=== PATIENT | male | born 1990 | race Caucasian/White ===

== ENCOUNTER 2020-05-09 10:24 | Emergency (ER) | payer OTHER, SELFPAY ==
[2020-05-09 10:43] VITALS: BP 146/84; PULSE 90; RESP 16; TEMP 36.1; O2SAT 97; BMI 32.5
--- NOTE | 2020-05-09 10:46 | PC.NURSE ---
usually wears corrective lenses. Not wearing them during testing.
--- NOTE | 2020-05-09 10:48 | PC.NURSE ---
[place] like a piece of metal got into right eye. Denies pain currently but redness noted to inside of right eye. Slightly blurry vision. Unaware of TDAP status.
--- NOTE | 2020-05-09 11:34 | ED_ITS ---
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 Said that he was wearing eye protection but that the area was windy and dust from the grinding was flying around? he thought he felt something go into his right eye and so he stopped working for about 10 minutes and to see if it would ?blinked out? and it did not so he then irrigated his eye with some eye wash but when he looked in mirror he saw that there appeared to be a small speck of dark material in his right eye and so he came to the emergency department for further ev aluation. He currently is having almost no pain and he did have some blurred vision on the right side earlier but he feels this has now resolved. He says that his eye feels irritated slightly when he blinks but is not bothering him too much at this point. He also reports he has a slight headache that is right- sided that began after he felt something went in his eye. This is a new job use only been out for about 1 week and he was told not to fill out L and I for his emergency department visit so he does not want to do this today. He denies vision changes, visual field loss, current eye pain, or any other symptoms. 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) Severity: mild Severity scale (1-10): 1 If Pain, Quality: other (Irritating) Associated symptoms: headache (Slight right-sided ) Treatments Prior to Arrival: irrigated eye Related Data Patient tetanus UTD: No (Patient is unsure of last tetanus) Previous Rx's Medication Instructions Recorded erythromycin 1 cm EYE-BOTH TID 5 Days #3.5 gram 05/09/20 Allergies Allergy/AdvReac Type Severity Reaction Status Date / Time No Known Drug Allergies Allergy Verified 05/09/20 10:46 Review of Systems <Elizabeth Wall PA-C - Last Filed: 05/09/20 16:06> Review of Systems Narrative: GENERAL: Denies chills, fatigue, malaise, fever, sweats. HEENT: Positive for bilateral eye discomfort and irritation on the right positive for eye pain and blurred vision on the right now resolved, Denies sinus pain, ear pain, sore throat, difficulty swallowing, dizziness. RESPIRATORY: Denies dyspnea, cough, wheezing, hemoptysis, sputum. CARDIOVASCULAR: Denies chest pain, palpitations, orthopnea, edema, GASTROINTESTINAL: Denies nausea, vomiting, abdominal pain, diarrhea, constipation, melena. : Denies dysuria, frequency, incontinence, hematuria, urinary retention. MUSCULOSKELETAL: denies weakness, joint pain, or bony pain SKIN: Denies rash, skin lesions, or other NEUROLOGIC: Denies weakness, positive for mild headache on the right headache, negative for numbness, change in speech, confusion, seizures, incoordination. PSYCHIATRIC: No concerning psychosocial issues. 12 point review of systems is negative except for those stated above Patient History <Elizabeth Wall PA-C - Last Filed: 05/09/20 16:06> Social History Smoking Status: Never smoker Smoking Status: Never smoker alcohol intake frequency: 0-2 drinks per day Substance Use Type: does not use Exam <Elizabeth Wall PA-C - Last Filed: 05/09/20 16:06> Narrative Exam Narrative: GENERAL: 29 year old patient appears stated age. Well-nourished, well-developed patient, in mild distress. HEAD: Atraumatic. Normocephalic. EYES: Pupils equal round and reactive. Extraocular motions intact. No scleral icterus. There is mild injection on the nasal side of the right eye just medial to the iris, there is a 0.03 mm speck of dark material the remains stationary with blinking at the 5 o'clock position, there is no injection or drainage. The globes appear to be intact, the sclera and cornea are without generalized erythema, injection, exudate or swelling bilaterally. ENT: Nose without bleeding, purulent drainage. Throat without erythema, tonsillar hypertrophy or exudate. Airway patent. NECK: Trachea midline. Non tender CARDIOVASCULAR: Regular rate and rhythm without murmurs, gallops, or rubs. RESPIRATORY: Clear to auscultation. Breath sounds equal bilaterally. No wheezes, rales, or rhonchi. EXTREMITIES: No edema or joint tenderness. BACK: Nontender without deformity or crepitance. No flank tenderness. NEURO: AOx3. Cranial nerves are intact. SKIN: No rash or erythema of visible areas Initial Vital Signs Initial Vital Signs: Vital Signs Temperature 97.0 F L 05/09/20 10:43 Pulse Rate 90 05/09/20 10:43 Respiratory Rate 16 05/09/20 10:43 Blood Pressure 146/84 H 05/09/20 10:43 Pulse Oximetry 97 05/09/20 10:43 <Aneta Andre DO - Last Filed: 05/11/20 07:37> Initial Vital Signs Initial Vital Signs: Vital Signs Temperature 97.0 F L 05/09/20 10:43 Pulse Rate 90 05/09/20 10:43 Respiratory Rate 16 05/09/20 10:43 Blood Pressure 146/84 H 05/09/20 10:43 Pulse Oximetry 97 05/09/20 10:43 EYE: EOMI, LIA, foreign body noted and in the sclera with naked eye. It was easily removed with a Q-tip. Procedures <KEYANNA Velez Last Filed: 05/09/20 16:06> Foreign Body EYE Time Out performed: Yes Location: eye (R) Topical anesthetic used: proparacaine Foreign body: metal Evidence of corneal penetration: No Technique: irrigation and cotton tip swab Procedure performed under: direct visualization with magnification Post-procedure medication: ophthalmic antibiotic Patient tolerated procedure: well Scores <KEYANNA Velez Last Filed: 05/09/20 16:06> GCS [place] coma scale eye opening: Spontaneous [place] coma scale verbal response: Orientated [place] coma scale motor response: Obey commands [place] coma scale total score: 15 Course <KEYANNA Velez Last Filed: 05/09/20 16:06> Orders Ordered: Discontinued Medications Diphtheria/Tetanus/Acell Pertussis (Adacel) 0.5 ml IM .ONCE ONE Stop: 05/09/20 12:37 Last Admin: 05/09/20 12:39 Dose: 0.5 ml Documented by: RANDI Fluorescein Sodium (Ful-Lisbet) 1 mg EYE-RIGHT NOW ONE Stop: 05/09/20 11:36 Last Admin: 05/09/20 12:40 Dose: 1 mg Documented by: RANDI Fluorescein Sodium (Ful-Lisbet) 1 mg EYE-LEFT NOW ONE Stop: 05/09/20 11:41 Last Admin: 05/09/20 12:15 Dose: 1 mg Documented by: RANDI Proparacaine HCl (Parcaine 0.5% Ophth Lisa) 2 drops EYE-RIGHT NOW ONE Stop: 05/09/20 11:36 Last Admin: 05/09/20 12:14 Dose: 2 drops Documented by: RANDI Proparacaine HCl (Parcaine 0.5% Ophth Lisa) 2 drops EYE-LEFT NOW ONE Stop: 05/09/20 11:41 Last Admin: 05/09/20 12:15 Dose: 2 drops Documented by: RANDI Tetanus/Diphtheria Toxoids (Td) 0.5 ml IM .ONCE ONE Stop: 05/09/20 11:36 Last Admin: 05/09/20 12:39 Dose: Not Given Documented by: RANDI Vital Signs Vital signs: Vital Signs - 8 hr 05/09/20 10:43 05/09/20 12:02 Temperature 97.0 F L Pulse Rate 90 74 Respiratory Rate 16 14 Blood Pressure 146/84 H Blood Pressure [Left Arm] 123/74 Pulse Oximetry 97 98 <Aneta Andre DO - Last Filed: 05/11/20 07:37> Orders Ordered: Discontinued Medications Diphtheria/Tetanus/Acell Pertussis (Adacel) 0.5 ml IM .ONCE ONE Stop: 05/09/20 12:37 Last Admin: 05/09/20 12:39 Dose: 0.5 ml Documented by: RANDI Fluorescein Sodium (Ful-Lisbet) 1 mg EYE-RIGHT NOW ONE Stop: 05/09/20 11:36 Last Admin: 05/09/20 12:40 Dose: 1 mg Documented by: RANDI Fluorescein Sodium (Ful-Lisbet) 1 mg EYE-LEFT NOW ONE Stop: 05/09/20 11:41 Last Admin: 05/09/20 12:15 Dose: 1 mg Documented by: RANDI Proparacaine HCl (Parcaine 0.5% Ophth Lisa) 2 drops EYE-RIGHT NOW ONE Stop: 05/09/20 11:36 Last Admin: 05/09/20 12:14 Dose: 2 drops Documented by: RANDI Proparacaine HCl (Parcaine 0.5% Ophth Lisa) 2 drops EYE-LEFT NOW ONE Stop: 05/09/20 11:41 Last Admin: 05/09/20 12:15 Dose: 2 drops Documented by: RANDI Tetanus/Diphtheria Toxoids (Td) 0.5 ml IM .ONCE ONE Stop: 05/09/20 11:36 Last Admin: 05/09/20 12:39 Dose: Not Given Documented by: RANDI Vital Signs Vital signs: Vital Signs - 8 hr 05/09/20 10:43 05/09/20 12:02 Temperature 97.0 F L Pulse Rate 90 74 Respiratory Rate 16 14 Blood Pressure 146/84 H Blood Pressure [Left Arm] 123/74 Pulse Oximetry 97 98 MDM - Eye Problem <Elizabeth Wall PA-C - Last Filed: 05/09/20 16:06> Differential Diagnosis Differential diagnosis: Likely corneal abrasion and other (Foreign body, eye trauma) Medical Records Attestation: I reviewed the patient's medical records. MDM Narrative Medical decision making narrative: This is a 29-year-old previously healthy gentleman who presents with right eye injury sustained at work today. Flex of dust and possibly maxwell metal flew into his eye while he was grinding metal when they were carried on the wind. He has no history of eye problems or eye surgery, does not wear contact lenses and at the time of exam in the emergency department had no active complaint of pain or visual changes. Eye exam was u nremarkable with the exception of the presence of 1 approximately 0.03 mm dark speck of material stationary and superficially lodged in the cornea of each of the patient's eyes. Proparacaine, Fluroscein exam. Saline washout and extensive flushing did not resolve the foreign body, ultimately removed with a sterile cotton tip swab without incident. Dr. Andre ED attending was involved in this patient's care and also examined the patient's eye. Discussed follow-up plan, antibiotic ointment for his eye, provided a prescription for this, provided emergency return precautions, all questions were answered. Discharge Plan Departure Patient Disposition: Home Clinical Impression: Acute foreign body of cornea Qualifiers: Encounter type: initial encounter Laterality: right Qualified Code(s): T15.01XA - Foreign body in cornea, right eye, initial encounter Right corneal abrasion Qualifiers: Encounter type: initial encounter Qualified Code(s): S05.01XA - Injury of conjunctiva and corneal abrasion without foreign body, right eye, initial encounter Discharge Date/Time: 05/09/20 13:19 Instructions: DI for Corneal Abrasion, DI for Eye Pain, DI for Corneal Foreign Body-Eye Activity Restrictions/Additional Instructions: Thank you for letting us be part of the care in the emergency department today. There is no evidence of an emergent or life threatening illness at this time, but follow up with your doctor in 1-2 days is recommended nonetheless to continue to rule out serious underlying causes of your symptoms. Please call the office for an appointment. Please return to the Emergency Department for any worsening or persistent symptoms. Please take medications as directed. The right eye which was causing pain for you did have a very small piece of what appears to be resting metal superficially imbedded in your cornea this was removed after extensive irrigation with a cotton tip swab successfully. It is i mportant to use the antibiotic ointment as prescribed to ensure that you do not developed an infection in your eye, I have provided a paper prescription as requested. I have also provided a work note for you so that you can be excused from work today and tomorrow if needed. Please be sure to wear good eye protection that includes side protection over her temples when you are doing anything such as grinding that might release test or particular matter into the air. I am filling out self-insured L and I forms today for you. You will also see a referral to [facility] resources; I realize you do not live in the [facility] area but if you need help establishing a primary care provider and do not have one you can get in touch with them. You have any worsening pain, increasing redness, swelling, irritation or vision changes or worsening headache please seek medical care immediately Prescriptions: New erythromycin 5 mg/gram (0.5 %) ointment 1 cm EYE-BOTH TID 5 Days Qty: 3.5 RF: 0 Referrals: [facility] [Outside] Stand Alone Forms: Work Release Note <Aneta Andre, DO - Last Filed: 05/11/20 07:37> Cosign ED Attending Werner Attestation: I was immediately available in the department for consultation. Documentation has been reviewed. I agree with assessment and plan.
[2020-05-09 12:02] VITALS: BP 123/74; PULSE 74; RESP 14; O2SAT 98
[2020-05-09] MEDS: PROPARACAINE 0.5% OPHTH SOL 2 DROPS EYE-RIGHT (12:14)
[2020-05-09] MEDS: PROPARACAINE 0.5% OPHTH SOL 2 DROPS EYE-LEFT (12:15)
[2020-05-09] MEDS: FLUORESCEIN 1 MG STRIP EYE-LEFT (12:15)
[2020-05-09] MEDS: TET,DIPH,PERTUSS(ACELL),VAC/PF 0.5 ML SYRINGE IM (12:39)
[2020-05-09] MEDS: FLUORESCEIN 1 MG STRIP EYE-RIGHT (12:40)
== END 2020-05-09 13:19 | disposition home or self-care (01) ==
PROVIDERS: Emergency Provider Student in an Organized Health Care Education/Training Program
DX: T15.01XA Foreign body in cornea, right eye, initial encounter (principal); S05.51XA Penetrating wound with foreign body of right eyeball, initial encounter; Y99.0 Civilian activity done for income or pay; Z23 Encounter for immunization
CPT/HCPCS: 90471; 99283; 99284; 90715

== ENCOUNTER 2020-06-07 11:46 | Emergency (ER) | payer OTHER, SELFPAY ==
[2020-06-07 11:53] VITALS: BP 122/76; PULSE 84; RESP 20; TEMP 36.5; O2SAT 99; BMI 34.0
--- NOTE | 2020-06-07 11:59 | DI.RAD.S_ITS ---
PROCEDURE: XR HAND RT MIN 3V INDICATIONS: crush injury to right 2,3,4th finger tips. open wound on 3rd TECHNIQUE: 3 views of the hand(s) acquired. COMPARISON: None. FINDINGS: Bones: Nondisplaced fracture involving the tuft of the 3rd distal phalange. Carpal bones are normally aligned. No suspicious bony lesions. Soft tissues: No suspicious soft tissue calcifications. IMPRESSION: 3rd distal phalangeal fracture. Dictated by: Shelib Patel MD, PhD on 06/07/2020 at 13:08 Approved by: Shelbi Patel MD, PhD on 06/07/2020 at 13:09
[2020-06-07] MEDS: LIDO 1%/SOD BICARB 8.4% (10ML) 10 ML SYRINGE INJ (12:13)
--- NOTE | 2020-06-07 12:23 | ED_ITS ---
HPI - Extremity Injury (Upper) <RAMSEY Marshall - Last Filed: 06/08/20 00:10> General Chief Complaint: Extremity Injury, Upper Stated Complaint: Smashed Fingers on Rt Hand at Work Time Seen by Provider: 06/07/20 12:01 Source: patient Mode of arrival: Ambulatory Limitations: no limitations History of Present Illness HPI narrative: This is a 29-year-old male, nonsmoker, who presents to ED after he had crushed injury to his dominant right hand 2nd through 4th fingers. He works at [employer] and he was cutting a piece of metal and accidentally the affected finger got caught had crushed by approximately 200 lb metal at 9:30 a.m. today. Patient received Toradol 15mg IM injection prior coming into ED. patient states updated tetanus immunization 2 weeks ago due to eye injury. He reports worst pain in 3rd and 4th distal fingers and has open skin injury on 3rd distal finger pad. Patient reports intact sensation on affected fingers but pain increases with movement and difficulty flexing affected fingers due to pain. Patient reports excruciating throbbing pain. Last eat at 8:00 a.m. this. Related Data Previous Rx's Medication Instructions Recorded cephalexin [Keflex] 500 mg PO Q6H 7 Days #28 cap 06/07/20 hydrocodone-acetaminophen [[place]] 1 tab PO Q6H PRN #10 tab 06/07/20 Allergies Allergy/AdvReac Type Severity Reaction Status Date / Time No Known Drug Allergies Allergy Verified 06/07/20 11:57 Review of Systems <RAMSEY Marshall - Last Filed: 06/08/20 00:10> Review of Systems Narrative: General: Denies fever, chills, fatigue, malaise, sweats. HEENT: Denies sinus pain, ear pain, sore throat, difficulty swallowing, dizziness. Respiratory: Denies dyspnea, cough, wheezing, hemoptysis, sputum. Cardiovascular: Denies chest pain, palpitations, orthopnea, edema. Gastrointestinal: Denies nausea, vomiting, abdominal pain, diarrhea, constipation, melena. : Denies dysuria, frequency, incontinence, hematuria, urinary retention. Musculoskeletal: See HPI Skin: See HPI Neurologic: Denies weakness, headache, numbness, change in speech, confusion, seizures, incoordination. Psychiatric: No concerning psychosocial issues. 12-point review of systems is negative except for those stated above. Patient History <Matt MatthewRAMSEY Nelson - Last Filed: 06/08/20 00:10> Medical History Pilonidal cyst (Acute) Social History Smoking Status: Never smoker Smoking Status: Never smoker alcohol intake frequency: 0-2 drinks per day Substance Use Type: does not use Exam <RAMSEY Marshall - Last Filed: 06/08/20 00:10> Narrative Exam Narrative: General appearance: well developed, well nourished, appears to be in significant pain with facial grimacing. Head: normocephalic, atraumatic, no scalp lesions, non-tender. ENT: Hearing grossly intact. Nose without bleeding, purulent discharge. Airway patent. Neck/Thyroid: neck supple, full range of motion, no visible masses or meningeal signs. No JVD, non-tender without lymphadenopathy. Skin: Laceration to right 3rd finger pad. Heart: no clubbing, no cyanosis, no edema. S1 and S2 normal. RRR w/o murmurs, clicks, or bruits. Lungs: Breathing even and hyperventilating due to pain during nerve block on injured finger. No stridor. No accessory muscles used. Able to speak in full sentences. Chest: normal shape and expansion. Abdomen: non-obese, non-distended. Neurologic: alert and oriented. Cognitive exam, [employer] and PNS grossly intact on informal exam. Psych: good eye contact, normal affect. Initial Vital Signs Initial Vital Signs: Vital Signs Temperature 97.7 F 06/07/20 11:53 Pulse Rate 84 06/07/20 11:53 Respiratory Rate 20 06/07/20 11:53 Blood Pressure 122/76 06/07/20 11:53 Pulse Oximetry 99 06/07/20 11:53 Extrem Right upper extremity: wrist Details: normal to inspection; no tenderness and no swelling and hand Details: abnormal to inspection, neuromotor exam abnormal Details: other (Decreased active and passive range of motion in 2nd-5th fingers with flexion and extention against resistence), neurosensory exam normal, tenderness, vascular exam Details: radial pulse present and normal capillary refill, abnormal ROM of finger, swelling and laceration (Third finger pad) <Aneta Andre DO - Last Filed: 06/08/20 11:17> Initial Vital Signs Initial Vital Signs: Vital Signs Temperature 97.7 F 06/07/20 11:53 Pulse Rate 84 06/07/20 11:53 Respiratory Rate 20 06/07/20 11:53 Blood Pressure 122/76 06/07/20 11:53 Pulse Oximetry 99 06/07/20 11:53 Procedures <JO MarshallP - Last Filed: 06/08/20 00:10> Laceration Repair Laceration 1: Site: hand (3rd finger pad) Side (If applicable): right Size (cm): 1 Description: linear Depth: simple, single layer Local Anesthetic: lidocaine 1% and with bicarb (digital block times 2 on 3rd finger, once in 4th finger) Amount of anesthesia used (mL): 7 Pre-repair: wound explored and irrigated extensively Skin layer closed with: nylon Size (cm): 4-0 Number of sutures: 1 Orthopedic Splinting/Casting Injury #1: Side: right Upper Extremity Injury Location: hand Upper Extremity Immobilizer: volar splint Post splinting neuro exam: intact Post splinting vascular exam: intact Placed by: Nursing Scores <JO MarshallP - Last Filed: 06/08/20 00:10> GCS [place] coma scale eye opening: Spontaneous [place] coma scale verbal response: Orientated [place] coma scale motor response: Obey commands Cameron coma scale total score: 15 Course <RAMSEY Marshall - Last Filed: 06/08/20 00:10> Orders Ordered: Discontinued Medications Bacitracin (Bacitracin) 1 applic TOP NOW ONE Stop: 06/07/20 15:07 Last Admin: 06/07/20 15:11 Dose: 1 applic Documented by: TIFFANIE Cefazolin Sodium/Dextrose (Ancef) 2 gm in 100 mls @ 200 mls/hr IV NOW ONE Stop: 06/07/20 13:43 Last Infusion: 06/07/20 15:00 Dose: 0 mls/hr Documented by: Admin: 06/07/20 13:39 Dose: 200 mls/hr Documented by: TIFFANIE Lidocaine/Sodium Bicarbonate (Buffered Lidocaine 10 Ml Syr) 10 ml INJ NOW ONE Stop: 06/07/20 12:02 Last Admin: 06/07/20 12:13 Dose: 10 ml Documented by: MIREYA Morphine Sulfate (Morphine) 4 mg IV NOW ONE Stop: 06/07/20 13:13 Last Admin: 06/07/20 13:39 Dose: 4 mg Documented by: TIFFANIE Morphine Sulfate (Morphine) 4 mg IV NOW ONE Stop: 06/07/20 14:15 Last Admin: 06/07/20 14:32 Dose: 4 mg Documented by: TIFFANIE Oxycodone/Acetaminophen (Percocet 5/325) 1 tab PO NOW ONE Stop: 06/07/20 14:45 Last Admin: 06/07/20 15:10 Dose: 1 tab Documented by: TIFFANIE Reevaluation(s) Reevaluation #1: Attempted nerve block on 3 fingers due to pain, patient was able to tolerate 1 on 3rd digital block. States pain is too severe to tolerate. Patient has some hyperventilation and reports mild lightheadedness Time: 12:27 Reevaluation #2: Patient requested digital block on 4th finger since pain improved on 3rd finger and digit block completed and waiting for x-ray test. Time: 12:36 Consultations Consultation #1: Dr. Whitten consulted on the phone. Recommended the patient to follow up at the clinic. Dc to home with antibiotic medication and a simple splint Time: 15:00 Vital Signs Vital signs: Vital Signs - 8 hr 06/07/20 11:53 Temperature 97.7 F Pulse Rate 84 Respiratory Rate 20 Blood Pressure 122/76 Pulse Oximetry 99 <Aneta Andre, DO - Last Filed: 06/08/20 11:17> Orders Ordered: Discontinued Medications Bacitracin (Bacitracin) 1 applic TOP NOW ONE Stop: 06/07/20 15:07 Last Admin: 06/07/20 15:11 Dose: 1 applic Documented by: TIFFANIE Cefazolin Sodium/Dextrose (Ancef) 2 gm in 100 mls @ 200 mls/hr IV NOW ONE Stop: 06/07/20 13:43 Last Infusion: 06/07/20 15:00 Dose: 0 mls/hr Documented by: Admin: 06/07/20 13:39 Dose: 200 mls/hr Documented by: TIFFANIE Lidocaine/Sodium Bicarbonate (Buffered Lidocaine 10 Ml Syr) 10 ml INJ NOW ONE Stop: 06/07/20 12:02 Last Admin: 06/07/20 12:13 Dose: 10 ml Documented by: MIREYA Morphine Sulfate (Morphine) 4 mg IV NOW ONE Stop: 06/07/20 13:13 Last Admin: 06/07/20 13:39 Dose: 4 mg Documented by: TIFFANIE Morphine Sulfate (Morphine) 4 mg IV NOW ONE Stop: 06/07/20 14:15 Last Admin: 06/07/20 14:32 Dose: 4 mg Documented by: TIFFANIE Oxycodone/Acetaminophen (Percocet 5/325) 1 tab PO NOW ONE Stop: 06/07/20 14:45 Last Admin: 06/07/20 15:10 Dose: 1 tab Documented by: TIFFANIE Vital Signs Vital signs: Vital Signs - 8 hr 06/07/20 11:53 Temperature 97.7 F Pulse Rate 84 Respiratory Rate 20 Blood Pressure 122/76 Pulse Oximetry 99 MDM - Extremity Injury (Upper) <RAMSEY Marshall - Last Filed: 06/08/20 00:10> Differential Diagnosis Differential diagnosis: Likely finger sprain and other (finger open fracture from crush injury) Medical Records Attestation: I reviewed the patient's medical records. Imaging Data XR-Hand RT: Radiologist's Impression: [address] [address] XRay Report Signed Patient: Mathew Mccallum TMR#: [id number] : 1990Acct:[id number] Age/Sex: 29 / MDate of Service: 06/07/20 Loc: ED Accession Number: [id number] Procedure: XR hand RT min 3V Ordering Provider: Aneta Andre D.O. PROCEDURE: XR HAND RT MIN 3V INDICATIONS: crush injury to right 2,3,4th finger tips. open wound on 3rd TECHNIQUE: 3 views of the hand(s) acquired. COMPARISON: None. FINDINGS: Bones: Nondisplaced fracture involving the tuft of the 3rd distal phalange. Carpal bones are normally aligned. No suspicious bony lesions. Soft tissues: No suspicious soft tissue calcifications. IMPRESSION: 3rd distal phalangeal fracture. Dictated by: Shelbi Patel MD, PhD on 06/07/2020 at 13:08 Approved by: Shelbi Patel MD, PhD on 06/07/2020 at 13:09 [facility] Narrative Medical decision making narrative: This is a 29-year-old male with updated tet anus immunization presents to ED after right dominant hand had crushed injury from about 200 lb metal piece at work. Patient had open 3rd distal phalangeal fracture of right hand. Patient was given IV Ancef 2 g and discharged to home with Keflex 500 mg q.i.d. dose for 7 days. Patient discharged to home with [place] for severe pain and [id number] Tylenol and or Motrin to use for mild to moderate pain. Advised to use cool pack for next couple of days with elevation. Laceration has been repaired with 1 suture. Patient was provided with IV morphine, oral narcotic medication, and digital nerve block to help with pain. Patient tolerated procedure and advised to follow up with Benjamin Breaux his work for follow-up and also with [facility] orthopedist. Please see procedure note for suture repair. Affected hand/finger was splinted by nursing staff. Return precautions were discussed with the patient and patient verbalized understanding in agreement with treatment plan. Discharge Plan Departure Patient Disposition: Home Clinical Impression: Crush injury Fracture of finger, distal phalanx, right, open Qualifiers: Encounter type: initial encounter Finger: middle finger Fracture alignment: nondisplaced Qualified Code(s): S62.662B - Nondisplaced fracture of distal phalanx of right middle finger, initial encounter for open fracture Discharge Date/Time: 06/07/20 15:46 Instructions: DI for Laceration Repair -- Simple, DI for Open Fracture Activity Restrictions/Additional Instructions: You have been diagnosed with [none displaced open finger fracture on right 3rd distal phalanx and crushed injury to 2nd through 4th fingers. You were treated with IV Ancef 2 g while in ED. one suture has been placed on 3rd finger pad. You were medicated with the IV pain medication, digital block for pain management in ED. splint has been provided to help with fracture and pain. One sture has applied on the 3rd finger tip ]. What to do: *Take your medications as directed. Take [place] for severe pain. This is narcotic pain medication so please take precaution such as not driving, operating heavy equipments, or drinking alcohol. It can cause constipation so please take precautions. You can take [id number] Tylenol and or Motrin as needed for light to moderate discomfort. Ibuprofen 400-600 mg up to 3 times a day as needed for pain with food to decrease GI irritation. Tylenol 650-1000 mg up to 3 to 4 times a day as needed for pain. [place] has small dose of Tylenol and adult can take up to 4000 mg total Tylenol doses in 24 hour period. Please use cool pack next couple of days to decrease swelling and inflammation. Elevate your affected arm to decrease swelling. Please do not get your wound soaked in the water until suture removal. Keep your dressing intact for next 24 hrs. After then, you could remove your dressing, wash with soap and water. Pat dry with clean paper towel and dress it with antibiotic ointment. You can change dressing as needed and daily. Please monitor for signs and symptoms for infection such as increasing redness, swelling, warmth, pain, fever, purulent discharge. If this occurs, please return to ED or follow up with your primary care physician since your wound may be gotten infected. Please follow up with your primary care provider in 2-3 days for recheck wound. Your suture should be removed [ 7-10 ] days. This can be done by your primary provider, walk-in clinic or here in ED. Please keep your wound clean, dry and intact all times. *Follow up with your primary care provider in 2-3 days, call for an appointment. Let them know you were seen in the ED and that we asked you to be seen in follow up. You can follow-up with Benjamin Breaux for wound recheck and suture removal. *Return to ED if you have any new, worsening, or concerning symptoms, such as [severe pain, chest pain, breathing difficulty, unable to tolerate fluids, signs of infection, fever, increasing weakness/numbness/tingling on affected arm or any acute concerns]. Prescriptions: New cephalexin [Keflex] 500 mg capsule 500 mg PO Q6H 7 Days Qty: 28 RF: 0 hydrocodone-acetaminophen [[place]] 5-325 mg tablet 1 tab PO Q6H PRN (Reason: pain) Qty: 10 RF: 0 Referrals: [facility] [Provider Group] [facility] [Outside] <Aneta Andre, DO - Last Filed: 06/08/20 11:17> Cosign ED Attending Cosignature Attestation: I was immediately available in the department for consultation. Documentation has been reviewed. I agree with assessment and plan.
[2020-06-07] MEDS: MORPHINE 4 MG/ML INJ IV ×2 (13:39→14:32)
[2020-06-07] MEDS: CEFAZOLIN 2 GM/100 ML FROZ.PIGGY IV (13:39)
[2020-06-07 15:08] VITALS: BP 115/81; PULSE 80; RESP 17; O2SAT 99
[2020-06-07] MEDS: OXYCODONE/ACETAMINOPHEN 5/325 TABLET 1 TAB PO (15:10)
[2020-06-07] MEDS: BACITRACIN OINT 0.9 GM PCKT 1 APPLIC TOP (15:11)
--- NOTE | 2020-06-07 15:53 | PC.NURSE ---
digital blocks and suture applied by Matt MUSTAFA
--- NOTE | 2020-06-07 15:54 | PC.NURSE ---
splint to hand with thumb free
== END 2020-06-07 15:46 | disposition home or self-care (01) ==
PROVIDERS: Emergency Provider Nurse Practitioner Family
DX: S62.662B Nondisplaced fracture of distal phalanx of right middle finger, initial encounter for open fracture (principal); W45.8XXA Other foreign body or object entering through skin, initial encounter; Y99.0 Civilian activity done for income or pay
CPT/HCPCS: 12001; 29125; 64450; 73130; 96365; 96375; 96376; 99284; J0690; J2270